=== PATIENT | male | born 1970 | race Caucasian/White ===

== ENCOUNTER 2017-04-01 20:00 | Inpatient (IN) | payer OTHER ==
[~2017-04-01] VITALS: Ht 152.4 cm; Wt 64.0 kg
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
--- NOTE | ~2017-04-01 | PN ---
Unit #: [id number] #: [id number] Patient: ORION WOLFF [id number] [facility] [address] [place] [address] [id number] MR#: [id number] NAME: ORION WOLFF ROOM: [facility] Age: 46 Sex: M Admission Date: 04/02/2017 : 1970 Attending Physician: Adalberto Moctezuma M.D. Admitting Physician: Adalberto Moctezuma M.D. Primary Care Physician: Generic Doctor Not In System [facility] PROGRESS NOTES DATE 04/03/2017 DISCUSSION Mr. Wolff is a 46-year-old white male who was seen today and chart was reviewed and case was discussed with the staff. He has been anxious, withdrawn, seclusive to himself and reports feeling better and has been calm and cooperative with treatment recommendations and has been taking medications and tolerating them fairly well with no reported side effects. MENTAL STATUS EXAMINATION Middle-aged white male who was casually dressed with fair personal hygiene and appears to be in no acute distress or discomfort. He was awake and alert on interaction with intact orientation. anxious with congruent affect. His speech is slow and goal-directed. He denies any suicidal or homicidal ideation. Insight and judgement remains slightly . TREATMENT PLAN 1. Will continue on his current medications. 2. Will continue to follow up. Dictated by... Adalberto Moctezuma M.D. IAA/suzan TD: 04/04/2017 20:20 JOB #: [id number] Unit #: [id number] #: [id number] Patient: ORION WOLFF PROGRESS NOTES Page 1 of 1 X Adalberto Moctezuma MD X PROGRESS NOTE
--- NOTE | ~2017-04-01 | DS ---
Unit #: [id number] #: [id number] Patient: ORION WOLFF [id number] [facility] [address] [place] [address] [id number] I MR#: [id number] NAME: ORION WOLFF ROOM: 85 Age: 46 Sex: M Admission Date: 04/02/2017 : 1970 Discharge Date: 04/05/2017 Attending Physician: Adalberto Moctezuma M.D. Primary Care Physician: Generic Doctor Not In System DISCHARGE SUMMARY IDENTIFYING DATA Mr. Wolff is a 46-year-old single, white male who is a resident of [place], [place], and was self-referred to the hospital on a voluntary basis as a transfer from [facility]. DISCHARGE DIAGNOSES Psychiatric: Major depressive disorder, recurrent, moderate, without psychotic features; opioid dependence, moderate and acute withdrawals. Medical: Hepatitis. Stressors: Moderate psychosocial stressors. HISTORY OF PRESENT ILLNESS Please see initial psychiatric evaluation for details. PAST PSYCHIATRIC HISTORY Please see initial psychiatric evaluation for details. PAST MEDICAL HISTORY Please see initial psychiatric evaluation for details. HOSPITAL COURSE The [facility] and was oriented to the hospital environment. Routine p.r.n. medications were initiated and he was started on the detox protocol for opioids and was closely monitored. He was doing fairly well and was taking the medications regularly and was tolerating them fairly well, and was able to come out of the detox without any complications and was willing to continue treatment on an outpatient basis and as such, it was decided that he will be discharged home and will continue treatment on an outpatient basis. DISCHARGE MEDICATIONS None. DISCHARGE CONDITION Stable. PROGNOSIS Fair. Dictated by... Adalberto Moctezuma M.D. Unit #: [id number] #: [id number] Patient: ORION WOLFF IAA/modl TD: 04/05/2017 16:56 JOB #: [id number] DISCHARGE SUMMARY Page 1 of 1 X Adalberto Moctezuma MD X DISCHARGE SUMMARY
--- NOTE | ~2017-04-01 | PN ---
Unit #: [id number] #: [id number] Patient: ORION WOLFF [id number] [facility] [address] [place] [address] [id number] MR#: [id number] NAME: ORION WOLFF ROOM: [facility] Age: 46 Sex: M Admission Date: 04/02/2017 : 1970 Attending Physician: Adalberto Moctezuma M.D. Admitting Physician: Adalberto Moctezuma M.D. Primary Care Physician: Josh Doctor Not In System [facility] PROGRESS NOTES DATE April 04, 2017 DISCUSSION Mr. Wolff is a 46-year-old white male, with substance abuse and mood disorder, who was seen today and chart was reviewed and the case was discussed with the staff. He has been anxious, withdrawn, and rather seclusive to himself. Meanwhile, he has been cooperative with the treatment recommendations and he has been taking the medications and tolerating them fairly well with no reported side effects. MENTAL STATUS EXAMINATION Middle-aged white male, who was casually dressed with fair personal hygiene and appears to be in no acute distress or discomfort. He was awake and alert on interaction with intact orientation. His mood is anxious with a congruent affect. He denies any suicidal or homicidal ideations. His insight and judgment remain slightly impaired. TREATMENT PLAN 1. We will continue him on his current medications and treatment protocol, and will monitor his response to the medications, and make further adjustments as needed. 2. We will continue to followup. Dictated by... Sergei Osorio/toni TD: 04/05/2017 07:27 JOB #: [id number] Unit #: [id number] #: [id number] Patient: ORION WOLFF PROGRESS NOTES Page 1 of 1 X Adalberto Moctezuma MD PROGRESS NOTE
[2017-04-02 19:58] LABS: ALBUMIN SERUM 3.2 g/dL (3.5-5.0); BILIRUBIN,TOTAL 0.5 mg/dL (0.2-2.0); BUN/CREATININE RATIO 14.44; CALCIUM SERUM 8.4 mg/dL (8.4-10.2); CREATININE SERUM 0.9 mg/dL (0.6-1.4); GLOM FILT RATE Estimated 102.8 mL/min (>60); POTASSIUM 4.2 mmol/L (3.5-5.1); PROTEIN TOTAL SERUM 6.2 g/dL (6.0-8.3)
[2017-04-03 12:37] LABS: BASOPHIL% 0.7 % (0-2.5); EOSINOPHIL# 0.1 X10e3 (0-0.7); EOSINOPHIL% 2.1 % (0.0-7.0); HEMATOCRIT 43.4 % (38.0-50.0); HEMOGLOBIN 14.4 gm/dL (13.0-16.0); LYMPHOCYTE# 2.1 X10e3 (1.0-3.5); LYMPHOCYTE% 31.6 % (17.0-45.0); MEAN CELL VOLUME 84.6 FL (83-96); MEAN CORPUSCULAR HEMOGLOBIN 28.1 PG (28-34); MEAN CORPUSCULAR HGB CONC 33.3 g/dL (30-36); MEAN PLATELET VOLUME 9.1 FL (6.5-11.5); MONOCYTE# 0.5 X10e3 (0-1.0); NEUTROPHIL% 58.6 % (40-75); PLATELET COUNT 221 X10e3 (140-420); RED BLOOD COUNT 5.13 X10e (3.90-5.60); RED CELL DISTRIBUTION WIDTH 14.1 % (11.0-15.5); WHITE BLOOD COUNT 6.8 X10e3 (4.0-10.5)
[2017-04-03 12:39] LABS: DIFF IND NO
[2017-04-03 12:41] LABS: URINE APPEARANCE TURBID; URINE COLOR DK YELLOW; URINE GLUCOSE NEG (NEG); URINE KETONE TRACE (NEG); URINE LEUKOCYTE ESTERASE NEG (NEG); URINE NITRATE NEG (NEG); URINE PH 5.5 (5-8); URINE PROTEIN TRACE (NEG); URINE UROBILINOGEN 0.2 MG/DL (NEG)
[2017-04-03 12:53] LABS: URINE BILIRUBIN NEG (NEG); URINE BLOOD NEG (NEG)
[2017-04-03 13:01] LABS: AMPHETAMINE NEG (NEG); BARBITURATES NEG (NEG); BENZODIAZEPINES POS (NEG); COCAINE NEG (NEG); MARIJUANA NEG (NEG); OPIATES NEG (NEG); TRICYCLIC ANTIDEPRESSANTS NEG (NEG); U METHADONE NEG (NEG)
[2017-04-05 22:39] LABS: HA AB IGM (HEPPAN) Nonreactive (()); HB CORE AB IGM (HEPPAN) Nonreactive (Nonreactive); HB S AG (HEPPAN) Nonreactive (Nonreactive); HEP C AB (HEPPAN) Reactive (Nonreactive)
== END 2017-04-05 10:40 | DRG 885 ==
LOC: P1E 04-02 03:48
PROVIDERS: Psychiatry & Neurology Psychiatry
PROC: HZ2ZZZZ Detoxification Services for Substance Abuse Treatment (ICD-10-PCS; principal; 2017-04-02)
DX: F33.1 Major depressive disorder, recurrent, moderate (principal); K75.9 Inflammatory liver disease, unspecified; F11.23 Opioid dependence with withdrawal; Z88.0 Allergy status to penicillin
CPT/HCPCS: 80053; 80074; 80307; 81003; 85025; 86592; 87522